=== PATIENT | female | born 1960 | race Caucasian/White ===

== ENCOUNTER → 2016-09-19 | Outpatient (CLI) | payer BC | LOC: BMCIMAGING 12:56 | PROVIDERS: ATTEND Family Medicine | DX: Z12.31 Encounter for screening mammogram for malignant neoplasm of breast (principal) | CPT/HCPCS: G0202 ==

== ENCOUNTER → 2016-12-12 | Outpatient (CLI) | payer BC | LOC: BMCIMAGING 09:31 | PROVIDERS: ATTEND Family Medicine | DX: R06.02 Shortness of breath (principal); M41.85 Other forms of scoliosis, thoracolumbar region ==

== ENCOUNTER 2016-12-23 16:50 | Emergency (ER) | payer BC ==
[2016-12-23 17:02] VITALS: BP 116/71; PULSE 65; RESP 18; O2SAT 95
== END 2016-12-23 17:50 | disposition left against medical advice (07) ==
DX: Z53.21 Procedure and treatment not carried out due to patient leaving prior to being seen by health care provider (principal)

== ENCOUNTER → 2017-01-30 | Outpatient (CLI) | payer BC | LOC: FIMAGING 08:47 | PROVIDERS: ATTEND Family Medicine | DX: Z13.820 Encounter for screening for osteoporosis (principal); M85.80 Other specified disorders of bone density and structure, unspecified site; Z78.0 Asymptomatic menopausal state ==

== ENCOUNTER → 2017-12-30 | Outpatient (CLI) | payer OTHER | LOC: FIMAGING 11:14 | PROVIDERS: ATTEND Family Medicine | DX: R05 Cough (principal) ==

== ENCOUNTER 2018-01-03 13:25 | Emergency (ER) | payer OTHER ==
[2018-01-03 13:30] VITALS: BP 125/68
--- NOTE | 2018-01-03 14:14 | EDPHY ---
H & P Stated Complaint: Time Seen by Provider: 01/03/18 13:58 HPI/ROS: CHIEF COMPLAINT: Concern for pneumonia HISTORY OF PRESENT ILLNESS: Patient is a 57-year-old healthy female who comes to the emergency department complaining of a dry cough and sensation of shortness of breath for the last 6 weeks. She has not been febrile. No history of pulmonary or cardiac disease. She states that she had something similar last year and was eventually diagnosed with pneumonia and placed on antibiotics which made her symptoms better. She saw her primary on Friday a functional medicine doctor who obtained a chest x-ray that was normal and also sent off antibody titers. She did initially take a steroid taper prescribed by her primary to help with her symptoms as well as an inhaler. She states that the steroids helped about the inhaler does not. Those titers are positive for pneumonia and mycoplasma IgG G but not IgM. Severity: Mild Modifying factors: None REVIEW OF SYSTEMS: Constitutional: denies: chills, fever, recent illness, recent injury EENTM: denies: blurred vision, double vision, nose congestion Respiratory: denies: cough, shortness of breath Cardiac: denies: chest pain, irregular heart rate, lightheadedness, palpitations Gastrointestinal/Abdominal: denies: abdominal pain, diarrhea, nausea, vomiting, blood streaked stools Genitourinary: denies: dysuria, frequency, hematuria, pain Musculoskeletal: denies: joint pain, muscle pain Skin: denies: lesions, rash, jaundice, bruising Neurological: denies: headache, numbness, paresthesia, tingling, dizziness, weakness Hematologic/Lymphatic: denies: blood clots, easy bleeding, easy bruising Immunologic/allergic: denies: HIV/AIDS, transplant 10 systems reviewed and negative except as noted EXAM: GENERAL: Well-appearing, well-nourished and in no acute distress. HEAD: Atraumatic, normocephalic. EYES: Pupils equal round and reactive to light, extraocular movements intact, sclera anicteric, conjunctiva are normal. ENT: TMs normal, nares patent, oropharynx clear without exudates. Moist mucous membranes. NECK: Normal range of motion, supple without lymphadenopathy or JVD. LUNGS: Breath sounds clear to auscultation bilaterally and equal. No wheezes rales or rhonchi. HEART: Regular rate and rhythm without murmurs, rubs or gallops. ABDOMEN: Soft, nontender, normoactive bowel sounds. No guarding, no rebound. No masses appreciated. BACK: No CVA tenderness, no spinal tenderness, step-offs or deformities EXTREMITIES: Normal range of motion, no pitting or edema. No clubbing or cyanosis. NEUROLOGICAL: Cranial nerves II through XII grossly intact. Normal speech, normal gait. 5/5 strength, normal movement in all extremities, normal sensation , normal reflexes PSYCH: Normal mood, normal affect. SKIN: Warm, dry, normal turgor, no visible rashes or lesions. Source: Patient Exam Limitations: No limitations - Personal History Current Tetanus Diphtheria and Acellular Pertussis (TDAP): Yes - Medical/Surgical History Hx Asthma: No Hx Chronic Respiratory Disease: No Hx Diabetes: No Hx Cardiac Disease: No Hx Renal Disease: No Hx Cirrhosis: No Hx Alcoholism: No Hx HIV/AIDS: No Hx Splenectomy or Spleen Trauma: No Other PMH: orthopedic - Family History Significant Family History: No pertinent family hx - Social History Smoking Status: Never smoked Alcohol Use: Sober Drug Use: None Constitutional: Initial Vital Signs Temperature (C) 36.6 C 01/03/18 13:26 Heart Rate 69 01/03/18 13:26 Respiratory Rate 16 01/03/18 13:26 Blood Pressure 125/68 H 01/03/18 13:26 O2 Sat (%) 99 01/03/18 13:26 O2 Delivery Mode Room Air Allergies/Adverse Reactions: No Known Allergies Allergy (Unverified 12/23/16 17:02) Home Medications: Medication Instructions Recorded Lamictal 01/03/18 Paxil 01/03/18 methylPREDNISolone [Medrol Dose 1 each PO AD #1 ea 01/03/18 Alex] Medical Decision Making - Diagnostics Imaging Results: Imaging Impressions Chest X-Ray 01/03/18 14:04 Impression: Airways disease without pneumonia. Imaging: Discussed imaging studies w/ dean of instruction Radiologist ED Course/Re-evaluation: 2:20 p.m. We discussed the x-ray and lab results. She has had IgG positive but IgM negative or indeterminate which according to the [facility] reference means that she has been exposed to those back to in the past but is not currently affected. She feels reassured by this. She is asking for another round of Medrol Dosepak because that seemed to help with her symptoms. She did not feel that the inhaler helps with her symptoms. We discussed indications for returning to the emergency department. She denies chest pain. I did offer to do cardiac studies or studies for PE although I think it is low likelihood. She declined this. Differential Diagnosis: Partial list of the Differential diagnosis considered include but were not limited to; bronchitis, pneumonia, upper respiratory tract infection and although unlikely based on the history and physical exam, I also considered influenza, pneumonia, PE, acute coronary disease. I discussed these differential diagnoses and the plan with the patient as well as the usual and expected course. The patient understands that the diagnosis is provisional and that in medicine we are not always correct and that further workup is often warranted. Usual and customary warnings were given. All of the patient's questions were answered. The patient was instructed to return to the emergency department should the symptoms at all worsen or return, otherwise to followup with the physician as we discussed. Departure - Departure Disposition: Home, Routine, Self-Care Clinical Impression: Acute bronchitis Qualifiers: Bronchitis organism: unspecified organism Qualified Code(s): J20.9 - Acute bronchitis, unspecified Condition: Fair Instructions: Acute Bronchitis (ED) Referrals: David Lovett, DO [Primary Care Provider] - 2-3 days, if not improved Prescriptions: methylPREDNISolone [Medrol Dose Alex] 1 each PO AD #1 ea
== END 2018-01-03 14:33 | disposition home or self-care (01) ==
DX: J20.9 Acute bronchitis, unspecified (principal)